=== PATIENT | male | born 1960 | race Caucasian/White ===

== ENCOUNTER → 2018-08-22 | Day surgery (SDC) | payer OTHER ==
[~2018-08-22] MED LIST: ALLOPURINOL 10100 M1 PO; AMARYL2 MG PO; APAP650 PO; CIALIS5 MG PO; COZAAR 25 MG TA25 M1 PO; COZAAR 50 MG TA50 M1 PO; HUMALOG100 UNIT/1 SUBQ; HUMIRA40 MG/0.8 SUBQ; JANUVIA50 MG PO; LOVASTATIN 20 M20 MG PO; OMEGA-31000 M1 PO; TRESIBA FL100 UNIT/1 SUBQ; VITAMIN D5000 UNIT PO
--- NOTE | ~2018-08-22 | PROC ---
[address] [address] PROCEDURE REPORT Name: RAVIN KENNEDY JR Room: [facility].#: [id number] Admission: 08/22/18 Attend Phys: Som Calero MD Discharge: Date of : 56 Report #: [id number] THIS REPORT FOR: //name// For GI report, please see the Provation report in Perceptive 7 content. By: 1047Medical Records Staff [facility] /NINA
[2018-08-22 08:59] LABS: HEMATOCRIT 44.4 % (42.0-52.0); HEMOGLOBIN 15.3 gm/dL (14.0-18.0); MCHC 34.4 g/dL (28.0-37.0); MPV 8.9 fl. (7.2-11.1); RBC 4.63 mil/uL (4.50-6.00); RDW-CV 14.2 % (10.5-14.5); WBC 9.3 thou/uL (4.0-11.0)
[2018-08-22 09:21] LABS: CALCIUM 9.4 mg/dL (8.5-10.1); CREATININE 3.3 mg/dL (0.6-1.3); POTASSIUM 4.4 mmol/L (3.5-5.1)
[2018-08-22 09:30] LABS: ALBUMIN 3.9 g/dL (3.4-5.0); TOTAL BILIRUBIN 0.5 mg/dL (<0.1-1.0); TOTAL PROTEIN 7.9 g/dL (6.4-8.2)
--- NOTE | 2018-08-22 14:25 | EKG ---
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: [facility] : 1960 Requested By: Som Calero Order Number: [id number] Fei HAWKINS: Saul Hsieh Measurements Intervals [place] Rate: 75 P: 72 TX: 143 QRS: 81 QRSD: 95 T: 52 QT: 367 QTc: 410 Interpretive Statements Sinus rhythm No previous ECG available for comparison Electronically Signed On 08-22-2018 14:25:03 [employer] by Saul Hsieh [email or web address] <ELECTRONICALLY SIGNED> By: Saul Hsieh MD, [facility] 08/22/18 1425 09 1 Saul Hsieh MD, FACC /EPI
--- NOTE | 2018-08-24 18:06 | PATH ---
[address] [address] PATHOLOGY RPT PROCEDURE Name: KOLBY HECTOR JR Room: [facility].#: [id number] Admission: 08/22/18 Date of : 56 Discharge: Report #: [id number] Path Case #: [id number] [facility] Accession Number: [id number] . 01 Material submitted: . ASCENDING COLON POLYP . 01 Clinical history: . Screening . 02 Diagnosis: Colon, ascending, biopsy: - Adenomatous polyp. (SKM:pit 08/23/2018) QTP/08/23/2018 . 02 Electronically signed: . Herber Flanagan MD, Pathologist NPI- [id number] . 01 Gross description: . Received in formalin labeled "Kolby Hector Jr, ascending colon polyp," is a single segment of valentino soft tissue measuring 0.5 cm in maximum dimension. The specimen is entirely submitted in cassette A1. (TSD; 08/22/2018) TOB/TOB . 02 Pathologist provided ICD-10: D12.2 . 02 CPT . 063785 Specimen Comment: A courtesy copy of this report has been sent to Specimen Comment: [phone], . Specimen Comment: Report sent to / DR CHAPMAN Performed at: 01 [facility] [address] [place] [id number] MD Sebastián Tejada MD Phone: [phone] Performed at: 02 [facility] [address] [id number] MD Tej Macdonald MD Phone: [phone]
== END | disposition home or self-care (01) ==
LOC: M.SUR 08:34
PROVIDERS: Internal Medicine Gastroenterology
DX: Z12.11 Encounter for screening for malignant neoplasm of colon (principal); D12.2 Benign neoplasm of ascending colon; E11.22 Type 2 diabetes mellitus with diabetic chronic kidney disease; I12.0 Hypertensive chronic kidney disease with stage 5 chronic kidney disease or end stage renal disease; N18.5 Chronic kidney disease, stage 5; G47.30 Sleep apnea, unspecified; M10.9 Gout, unspecified; E66.9 Obesity, unspecified; Z98.890 Other specified postprocedural states; Z79.899 Other long term (current) drug therapy